=== PATIENT | male | born 1995 | race Caucasian/White ===

== ENCOUNTER 2024-05-24 11:04 | Inpatient (IN) | payer OTHER ==
[~2024-05-24] VITALS: Ht 180.3 cm; Wt 90.9 kg
[2024-05-24] MEDS ORDERED: LEXA1TAB PO (11:31)
[2024-05-24 11:54] LABS: HEMATOCRIT 44.1 % (42.0-52.0); HEMOGLOBIN 14.8 g/dl (13.5-17.5); MEAN CORPUSCULAR HEMOGLOBIN 29.3 pg (27.0-33.0); MEAN CORPUSCULAR HGB CONC 33.6 g/dl (32.0-36.5); MEAN CORPUSCULAR VOLUME 87.3 fl (80.0-96.0); PLATELET COUNT, AUTOMATED 240 10^3/uL (150-450); RED BLOOD COUNT 5.05 10^6/uL (4.30-6.10); WHITE BLOOD COUNT 8.3 10^3/uL (4.0-10.0)
[2024-05-24 12:23] LABS: ETHYL ALCOHOL (ETHANOL) 0.006 % (0.000-0.010)
[2024-05-24 12:25] LABS: ALBUMIN 4.1 G/DL (3.2-5.2); ALKALINE PHOSPHATASE 88 U/L (40-129); ALT/SGPT 50 U/L (7.0-40); AST/SGOT 25 U/L (<34); BILIRUBIN,DIRECT 0.1 MG/DL (<0.4); BILIRUBIN,TOTAL 0.4 MG/DL (0.3-1.2); BLOOD UREA NITROGEN 14 MG/DL (9-23); CALCIUM LEVEL 10.1 MG/DL (8.5-10.1); CARBON DIOXIDE LEVEL 27 MMOL/L (20-31); CHLORIDE LEVEL 102 MMOL/L (98-107); CREATININE FOR GFR 0.82 MG/DL (0.70-1.30); GLOMERULAR FILTRATION RATE > 60.0 (>60); GLUCOSE, FASTING 88 MG/DL (60-100); POTASSIUM SERUM 4.2 MMOL/L (3.5-5.1); SALICYLATE LEVEL < 3.0 MG/DL (<30); SODIUM LEVEL 139 MMOL/L (136-145); THYROID STIMULATING HORMONE 6.094 uIU/ML (0.55-4.78); TOTAL PROTEIN 7.5 G/DL (5.7-8.2)
[2024-05-24] MEDS ORDERED: HOME MED LIST COMPLETE! XX SCH (13:20)
[2024-05-24 13:22] LABS: AMPHETAMINES LEVEL URINE NEGATIVE (NEGATIVE); BARBITURATES URINE NEGATIVE (NEGATIVE); BENZODIAZEPINES URINE NEGATIVE (NEGATIVE); CANNABINOIDS URINE NEGATIVE (NEGATIVE); COCAINE METABOLITE URINE NEGATIVE (NEGATIVE); METHADONE URINE NEGATIVE (NEGATIVE); OPIATES URINE NEGATIVE (NEGATIVE); PHENCYCLIDINE URINE NEGATIVE (NEGATIVE)
[2024-05-24] MEDS ORDERED: diphenhydrAMINE 25MG CAP PO PRN (14:20)
[2024-05-24] MEDS ORDERED: ACETAMINOPHEN 325 MG TAB PO PRN (14:20)
[2024-05-24] MEDS ORDERED: IBUPROFEN 400MG TAB PO PRN (14:20)
[2024-05-24] MEDS ORDERED: MAALOX 30 ML SUSP *UDC PO PRN (14:20)
[2024-05-24] MEDS ORDERED: traZODone 50 MG TAB PO PRN (14:20)
[2024-05-24] MEDS ORDERED: MOM 30ML SUSPENSION UDC PO PRN (14:20)
[2024-05-24 20:55] VITALS: BP 141/94; TEMP 97.9; O2SAT 99
[2024-05-24] MEDS ORDERED: ESCITALOPRAM OXALATE 10 MG TAB (LEXAPRO) PO ONE (21:05)
[2024-05-24] MEDS: ESCITALOPRAM OXALATE 5MG TABLET (LEXAPRO) PO ONE (21:21)
[2024-05-25 09:47] VITALS: BP 129/86; TEMP 97.4; O2SAT 97
[2024-05-25 14:56] VITALS: BP 146/81; TEMP 98.1; O2SAT 98
[2024-05-25] MEDS: ESCITALOPRAM OXALATE 5MG TABLET (LEXAPRO) PO SCH (20:03)
[2024-05-26 06:33] VITALS: BP 137/77; TEMP 97.4; O2SAT 99
[2024-05-26 15:42] VITALS: BP 136/90; TEMP 97.4; O2SAT 100
[2024-05-27 06:51] VITALS: BP 128/88; TEMP 97.2; O2SAT 98
[2024-05-27 08:55] LABS: FREE T4 1.01 NG/DL (0.89-1.76); THYROID STIMULATING HORMONE 5.146 uIU/ML (0.55-4.78)
[2024-05-27 08:57] LABS: FREE T3 4.2 PG/ML (2.3-4.2)
[2024-05-27] MEDS ORDERED: ABIL1TAB11 PO (11:35)
[2024-05-27] MEDS ORDERED: LEXA5TAB13 PO (11:35)
== END 2024-05-27 12:29 | disposition home or self-care (01) | DRG 881 ==
LOC: EDBD 11:04 → M ED 11:04 → M ED INP 14:19 → M PSY 20:18
PROVIDERS: ADMIT Psychiatry & Neurology Psychiatry; ATTEND Psychiatry & Neurology Psychiatry
DX: F32.9 Major depressive disorder, single episode, unspecified (principal); R45.851 Suicidal ideations; Z91.82 Personal history of military deployment; Z79.899 Other long term (current) drug therapy; Z88.8 Allergy status to other drugs, medicaments and biological substances; Z87.891 Personal history of nicotine dependence